=== PATIENT | male | born 1975 | race African-American/Black ===

== ENCOUNTER 2019-05-08 19:58 | Emergency (ER) | payer OTHER ==
[~2019-05-08] VITALS: Ht 137.2 cm; Wt 63.5 kg
[2019-05-08] MEDS ORDERED: NORCO 7.5-3251 EACH PO (20:15)
[2019-05-08 22:39] VITALS: BP 102/49
== END 2019-05-08 22:40 | disposition short-term general hospital (02) ==
LOC: ER 19:58
DX: N36.0 Urethral fistula (principal)